=== PATIENT | female | born 1970 | race Hispanic/Latino ===

== ENCOUNTER 2017-01-28 09:54 | Outpatient (CLI) | payer OTHER | END 2017-01-28 19:12 | disposition home or self-care (01) | LOC: MAMMO 09:54 → RAD 10:00 → MAMMO 10:00 | DX: R92.8 Other abnormal and inconclusive findings on diagnostic imaging of breast (principal) | CPT/HCPCS: G0204-TC ==

== ENCOUNTER → 2017-05-18 04:54 | Outpatient (CLI) | payer OTHER | END | disposition home or self-care (01) | LOC: AMB 04:54 | DX: I46.9 Cardiac arrest, cause unspecified (principal) ==